=== PATIENT | female | born 2000 | race Caucasian/White ===

== ENCOUNTER 2019-06-01 07:12 | Emergency (ER) | payer OTHER, SELFPAY ==
--- NOTE | 2019-06-01 07:28 | ED.GENADULT ---
HPI - General Adult General Chief complaint: Unspecified Stated complaint: Sore Throat, Rash Time Seen by Provider: 06/01/19 07:14 Source: patient Mode of arrival: ambulatory Limitations: no limitations History of Present Illness HPI narrative: 18 years old white female presents with sore throat for the last 3 days. Denies sick contacts. No headache, no fever. Related Data Allergies Allergy/AdvReac Type Severity Reaction Status Date / Time No Known Allergies Allergy Verified 06/01/19 07:43 Review of Systems Review of Systems: Narrative: CONSTITUTIONAL: Denies fever, chills, or sweats. EYES: Denies visual changes, redness, or discharge. ENT: Denies rhinorrhea, congestion, complaining of sore throat, or otalgia. CARDIOVASCULAR: Denies chest pain, palpitations, or edema. RESPIRATORY: Denies cough or dyspnea. GASTROINTESTINAL: Denies abdominal pain, nausea, vomiting, or diarrhea. GENITOURINARY: Denies dysuria or hematuria. SKIN: Denies rash or itching. MUSCULOSKELETAL: Denies back pain, joint pain, or myalgia. NEUROLOGIC: Denies headache, numbness, or weakness. PSYCHIATRIC: Denies anxiety or depression. PMFSH Social History Social History Gender identity (if verbalized by the patient): Female Exam Narrative: Exam Narrative: General appearance: Well-developed, well-nourished Skin: Normal color Head: Normocephalic, nontraumatic Eyes: Clear conjunctiva ENT: Large erythematous tonsils, white patches, Neck: Supple, nontender Chest and respiratory: Airway patent, no respiratory distress, no accessory muscle use Heart: Regular rate/rhythm Abdomen: Soft, nontender, no organomegaly, quiet bowel sounds Vascular: Normal peripheral pulses, normal capillary refill. Musculoskeletal: Normal range of motion, nontender back Neurologic: Alert and oriented ?3, STOCK WORKER AND DELIVERER is normal as tested, no gross motor deficit Course Course Emergency Course: Unchanged Medical Decision Making MDM Narrative Medical decision making narrative: Strep throat is my concern. Critical Care Time Critical Care Time Critical Care Time: No Discharge Plan Discharge Clinical Impression: Strep throat Patient Disposition: Home, Self-Care Condition: Stable Instructions: Antibiotic Form Additional Instructions: Return if symptoms are worsening , call your family physician for appointment, take Tylenol as as needed for aches and pain, continue home medications. Prescriptions: New azithromycin [Zithromax] 250 mg tablet See Rx Instructions .ROUTE .COMPLEX Qty: 6 RF: 0 Follow-up/Referrals: Carson Geller MD [Physician] - 06/05/19 UNKNOWN,DOCTOR [Primary Care Provider] -
[2019-06-01 07:30] VITALS: BP 118/79; PULSE 110; RESP 14; TEMP 36.9; O2SAT 100
--- NOTE | 2019-06-01 07:58 | ED.GENADULT ---
HPI - General Adult General Chief complaint: Unspecified Stated complaint: Sore Throat, Rash Time Seen by Provider: 06/01/19 07:14 Source: patient Mode of arrival: ambulatory Limitations: no limitations History of Present Illness HPI narrative: Sore throat for the last few days Related Data Home Medications Medication Instructions Recorded Confirmed loratadine 10 mg PO DAILY 06/01/19 Allergies Allergy/AdvReac Type Severity Reaction Status Date / Time No Known Allergies Allergy Verified 06/01/19 07:43 Review of Systems Review of Systems: Narrative: CONSTITUTIONAL: Denies fever, chills, or sweats. EYES: Denies visual changes, redness, or discharge. ENT: Denies rhinorrhea, congestion, sore throat CARDIOVASCULAR: Denies chest pain, palpitations, or edema. RESPIRATORY: Denies cough or dyspnea. GASTROINTESTINAL: Denies abdominal pain, nausea, vomiting, or diarrhea. GENITOURINARY: Denies dysuria or hematuria. SKIN: Denies rash or itching. MUSCULOSKELETAL: Denies back pain, joint pain, or myalgia. NEUROLOGIC: Denies headache, numbness, or weakness. PSYCHIATRIC: Denies anxiety or depression. PMFSH Social History Social History Gender identity (if verbalized by the patient): Female Exam Narrative: Exam Narrative: General appearance: Well-developed, well-nourished Skin: Normal color Head: Normocephalic, nontraumatic Eyes: Clear conjunctiva ENT: Large swollen tonsils bilaterally with yellow patches, ears normal, nose normal Neck: Supple, nontender Chest and respiratory: Airway patent, no respiratory distress, no accessory muscle use Heart: Regular rate/rhythm Abdomen: Soft, nontender, no organomegaly, quiet bowel sounds Vascular: Normal peripheral pulses, normal capillary refill. 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 Labs ordered. Further plan to follow Vital Signs Vital Signs: Vital Signs Temperature 36.9 C 06/01/19 07:30 Pulse Rate 110 H 06/01/19 07:30 Respiratory Rate 14 06/01/19 07:30 Blood Pressure 118/79 06/01/19 07:30 Pulse Oximetry 100 06/01/19 07:30 Temperature 36.9 C 06/01/19 07:30 Pulse Rate 110 H 06/01/19 07:30 Respiratory Rate 14 06/01/19 07:30 Blood Pressure 118/79 06/01/19 07:30 Pulse Oximetry 100 06/01/19 07:30 Lab Data Labs: Strep Screen Positive Group A Strep *(Reference Range: Negative)* Critical Care Time Critical Care Time Critical Care Time: No Discharge Plan Discharge Clinical Impression: Strep throat Patient Disposition: Home, Self-Care Condition: Stable Instructions: Antibiotic Form Additional Instructions: Return if symptoms are worsening , call your family physician for appointment, take Tylenol as as needed for aches and pain, continue home medications. Prescriptions: New azithromycin [Zithromax] 250 mg tablet See Rx Instructions .ROUTE .COMPLEX Qty: 6 RF: 0 No Action loratadine 10 mg Capsul
== END 2019-06-01 07:54 | disposition home or self-care (01) ==
PROVIDERS: Emergency Provider Emergency Medicine
DX: J02.0 Streptococcal pharyngitis (principal)
CPT/HCPCS: 87880; 99283

== ENCOUNTER 2024-11-09 20:47 | Emergency (ER) | payer SELFPAY ==
--- OUTSIDE RECORDS SUMMARY | 2024-11-09 20:49 | XMS_ITS | Encounter Summary ---
Author Organization [facility] Address [address] [place] [address] Phone Care Team Providers Care Abrasive Wheel Molder Name Role Phone Christina Stapleton APRN, SENIOR CHEMICAL ENGINEER Primary Care Provider [phone]- [phone] Reason for Visit * Reason Comments Medication Refill Encounter Details Date Type Department Care Team (Late st Contact Info) Description 12/03/2023 Refill [facility] - Primary Care - [place] [address] [place] [address] Christina Stapleton APRN, SENIOR CHEMICAL ENGINEER [address] [place] [address] Medication Refill Social History Tobacco Use Types Packs/Day Years Used Date Smoking Tobacco: Never Smokeless Tobacco: Never Alcohol Use Standard Drinks/Week Comments Not Currently 0 (1 standard drink = 0.6 oz pur e alcohol) [facility] Utilities Answer Date Recorded In the past 12 months has [employer], [employer], [employer], or water [employer] threatened to shut off services in your home? No 09/09/2023 Social Connection and Isolat ion Panel [NHANES] Answer Date Recorded In a typical week, how many times do you talk on the phone with family, friends, or neighbors? More than three times a week 09/09/2023 How often do you get togethe r with friends or relatives? Once a week 09/09/2023 How often do you attend chur or caodaism services? Never 09/09/2023 Do you belong to any clubs o r organizations such as congregational groups, unions, fraternal or athletic groups, or school groups? No 09/09/2023 How often do you attend meet ings of the clubs or organizations you belong to? Never 09/09/2023 Are you , , di vorced, , never , or living with a partner? Never 09/09/2023 AUDIT-C Answer Date Recorded Q1: How often do you have a drink containing alcohol? Never 09/09/2023 Q2: How many drinks containi ng alcohol do you have on a typical day when you are drinking? Patient does not drink Q3: How often do you have si x or more drinks on one occasion? Never 09/09/2023 Overall Financial Resource Strain (CARDIA) Answe r Date Recorded How hard is it for you to pa y for the very basics like food, housing, medical care, and heating? Not hard at all 09/09/2023 PHQ-2 Answer Date Recorded Total Score - Questions 1-9 10 08/26 [facility] - Occupational Stress Questionnaire Answer Date Recorded Do you feel stress - tense, restless, nervous, or anxious, or unable to sleep at night because your mind is troubled all the time - these days? Patient declined 09/09/2023 Exercise Vital Sign Answer Date Recorde d On average, how many days pe r week do you engage in moderate to strenuous exercise (like a brisk walk)? 2 days 09/09/2023 On average, how many minutes do you engage in exercise at this level? 20 min 09/09/2023 Hunger Vital Sign Answer Date Recorded Within the past 12 months, y ou worried that your food would run out before you got the money to buy more. Never true 09/09/19 24 Within the past 12 months, t he food you bought just didn't last and you didn't have money to get more. Never true 09/09/2023 PRAPARE - Transportation Answer Date Re corded In the past 12 months, has l ack of transportation kept you from medical appointments or from getting medications? No 08/26 In the past 12 months, has l ack of transportation kept you from meetings, work, or from getting things needed for daily living? No 09/09/2023 Housing Stability Vital Sign Answer Clyde e Recorded In the last 12 months, was t here a time when you were not able to pay the mortgage or rent on time? No 09/09/2023 In the last 12 months, how many places have you lived? 1 09/09/2023 In the last 12 months, was t here a time when you did not have a steady place to sleep or slept in a usp (including now)? No 09/09/2023 Education Answer Date Recorded What is the highest level of school you have completed or the highest degree you have received? 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 Requested Prescriptions Pending Prescriptions Disp Refills sertraline (ZOLOFT) 25 MG Tablet [Pharmacy Med Name: SERTRALINE HCL 25 MG TABLET] 90 Tablet 0 Sig: TAKE 1 TABLET BY MOUTH EVERY DAY SSRI (6 Month Refill Only) Protocol Failed - 12/03/2023 1:31 PM Failed - Patient has established therapy with SSRI for at least 6 months Passed - No test in the past 12 months or most recent test was negative Passed - No active on record Passed - Visit with relevant provider in past 6 months or upcoming 90 days Recent Visits Date Type Provider Dept 09/10/23 Office Visit Christina Stapleton, PRESS OPERATOR INSTANT PRINT SHOP, SENIOR CHEMICAL ENGINEER [facility] Showing recent visits within past 182 days and meeting all other requirements Future Appointments No visits were found meeting these conditions. Showing future appointments within next 90 days and meeting all other requirements Passed - Has an encounter in the past 6 months with a depression, anxiety, adjustment disorder, OCD, or PTSD visit diagnosis documented in this encounter Plan of Treatment Not on file documented as of this encounter Visit Diagnoses Diagnosis Anxiety Anxiety state, unspecified Depression, unspecified depression type documented in this encounter Additional Health Concerns Assessment Noted Time PHQ-9 Depression Total Score: 10 024 8:56 AM CDT documented as of this encounter Care Teams Abrasive Wheel Molder Relationship Specialty Start Date End Date Christina Stapleton, PRESS OPERATOR INSTANT PRINT SHOP, SENIOR CHEMICAL ENGINEER [address] [place] [address] PCP - General Certified Nurse Practitioner 09/10/23 documented as of this encounter
--- OUTSIDE RECORDS SUMMARY | 2024-11-09 20:49 | XMS_ITS | Encounter Summary ---
Author Organization [facility] Address [address] [place] [address] Phone Care Team Providers Care Panel Builder Name Role Phone Nunu Pritchard APRN, JULIÁN Primary Care Provider Christina Stapleton APRN, CNP Primary Care Provider [phone]- [phone] Reason for Visit * Reason Comments Medication Refill Encounter Details Date Type Department Care Team (Late st Contact Info) Description 02/27/2021 Refill [facility] - Primary Care - [place] [address] [place] [id number] Nunu Pritchard APRN, JULIÁN [address] [place] [address] Medication Refill Social History Tobacco Use Types Packs/Day Years Used Date Smoking Tobacco: Never Smokeless Tobacco: Never PHQ-2 Answer Date Recorded Total Score - Questions 1-9 0 05/28 Education Answer Date Recorded What is the highest level of school you have completed or the highest degree you have received? 12th grade 06/09/2020 Comments Unknown Sex and Gender Information Value Date Recorded Sex Assigned at Not on file Legal Sex Female 3:28 PM TIPPLE TENDER Gender Identity Not on file Sexual Orientation Not on file documented as of this encounter Miscellaneous Notes * Telephone Encounter - Fabio Seo PAC - 02/27/2021 3:03 PM CDT Rx refill approved. * Telephone Encounter - Mariana Rooney RN - 02/27/2021 2:15 PM CDT Medication failed the protocol, provider to review and approve the medication order if appropriate. Requested Prescriptions Pending Prescriptions Disp Refills citalopram (CeleXA) 20 MG Tablet [Pharmacy Med Name: CITALOPRAM 20MG TABLETS] 90 Tablet 0 Sig: TAKE 1 TABLET BY MOUTH DAILY Citalopram (Celexa) (6 Month Refill Only) Protocol Failed - 02/27/2021 2:15 PM Failed - Has an encounter in the past 6 months with a depression, anxiety, adjustment disorder, OCD, or PTSD visit diagnosis Passed - No test in the past 12 months or most recent test was negative Passed - No active on record Passed - Citalopram dose is less than or equal to 40mg / day Passed - Visit with relevant provider in past 6 months or upcoming 90 days Recent Visits Date Type Provider Dept 11/18/20 Office Visit Nunu Pritchard, LATANYA, CARDIAC REHAB NURSE [facility] Showing recent visits within past 182 days and meeting all other requirements Future Appointments No visits were found meeting these conditions. Showing future appointments within next 90 days and meeting all other requirements Passed - Patient has established therapy with Citalopram for at least 6 months documented in this encounter Plan of Treatment Not on file documented as of this encounter Visit Diagnoses Not on filedocumented in this encounter Additional Health Concerns Assessment Noted Time PHQ-9 Depression Total Score: 0 06/10/20 9:07 AM TIPPLE TENDER documented as of this encounter Care Teams Panel Builder Relationship Specialty Start Date End Date Nunu Pritchard, RAIL TRANSPORTATION TABELER, CARDIAC REHAB NURSE [address] [place] [address] PCP - General Advanced Practice Nurse 06/10/20 Christina Stapleton APRN, CARDIAC REHAB NURSE [address] [place] [address] PCP - General Certified Nurse Practitioner 09/10/23 documented as of this encounter
--- OUTSIDE RECORDS SUMMARY | 2024-11-09 20:49 | XMS_ITS | Clinical Summary ---
Author Organization [facility] Address [address] [place] [address] Phone Care Team Providers Care Lead Refiner Name Role Phone Christina Stapleton APRN, ICT EDUCATOR Primary Care Provider [phone]- [phone] Allergies No known active allergies Medications clindamycin (CLINDAGEL) 1 % Gel BEA TO TOPICALLY HS 0 Active ADAIR 3-0.02 MG Tablet TK 1 T PO D 0 Active sertraline (ZOLOFT) 25 MG TabletIndication s:Anxiety,Depres merary, unspecified depression type TAKE 1 TABLET BY MOUTH EVERY DAY 90 Tablet 4 Active Omeprazole Magnesium (PRILOSEC PO) Take by mouth. A ctive Active Problems No known active problems Family History Medical History Relation Name Comments No Known Problems Mother Relation Name Status Comments Father Alive Mother Alive Social History Tobacco Use Types Packs/Day Years Used Date Smoking Tobacco: Never Smokeless Tobacco: Never Alcohol Use Standard Drinks/Week Comments Not Currently 0 (1 standard drink = 0.6 oz pur e alcohol) [facility] Utilities Answer Date Recorded In the past 12 months has [employer], gas, oil, or water [employer] threatened to shut off services in your [...] week 09/09/2023 How often do you attend [facility] or synagogue services? Never 09/09/2023 Do you belong to any clubs o r organizations such as faith groups, unions, fraternal or athletic groups, or [...] Recorded Total Score - Questions 1-9 0 02/28 [facility] - Occupational Stress Questionnaire Answer Date Recorded [...] place to sleep or slept in a nursing home (including now)? No 09/09/2023 Education Answer Date Recorded What is the highest level of school you have completed or the highest degree you have received? 12th grade 06/09/2020 Sexually Active Control Partners Comments Yes Oral Contraceptive Comments Unknown Sex and Gender Information Value Date Recorded Sex Assigned at Not on file Legal Sex Female 3:28 PM CLINICAL ASSOC Gender Identity Not on file Sexual Orientation Not on file Last Filed Vital Signs Vital Sign Reading Time Taken Comments Blood Pressure 110/72 09/10/2023 8:55 AM CDT Pulse 97 09/10/2023 8:55 AM CDT Temperature 37 C (98.6 F) 09/10/2023 8:55 AM CDT Respiratory Rate 20 09/10/2023 8:55 AM CDT Oxygen Saturation 98% 09/10/2023 8:55 AM CDT Inhaled Oxygen Concentration - - Weight 56.2 kg (124 lb) 09/10/2023 8:55 AM CDT Height 170.2 cm (5' 7 ) 09/10/2023 8:55 AM CDT Body Mass Index 19.42 09/10/2023 8:55 AM CDT Plan of Treatment Health Maintenance Due Date Last Done Comments TdaP Immunization 1999 Human Papillomavirus (HPV) Immunization (1 - 3-dose series) 10/05/2014 Hepatitis B Immunization (1 of 3 - 19+ 3-dose series) 10/05/2018 Respiratory Syncytial Virus (RSV) Immunization (Adult) (1 - 1-dose 75+ series) 10/05/2074 SARS-COV-2 Immunization Discontinued 03/20/20 21, 02/27/2021 Hepatitis C Virus (HCV) Screening Completed 09/28/2023 Influenza Immunization Discontinued Meningococcal Immunization (ACWY) Aged Out No longer eligible based on patient's age to complete this topic Pneumococcal Immunization Combined Aged Out No longer eligible based on patient's age to complete this topic Rotavirus Immunization Aged Out No lo nger eligible based on patient's age to complete this topic Procedures Procedure Name Priority Date/Time Associated Diagnosis Comments HEPATITIS C ANTIBODY Routine 09/28/2023 Pain in both lower extremities Anxiety Depression, unspecified depression type Encounter for hepatitis C screening test for low risk patient from Last 3 Months or Most Recently Relevant to Health Maintenance Results * HEPATITIS C ANTIBODY (09/28/2023) Blood 09/28/2023 Christina Stapleton APRN, JULIÁN CHEMISTRY ORDERABLES Final Result from Last 3 Months or Most Recently Relevant to Health Maintenance Insurance [employer] Care Teams Lead Refiner Relationship Specialty Start Date End Date Christina Stapleton APRN, ICT EDUCATOR [address] [place] [address] PCP - General Certified Nurse Practitioner 09/10/23
[2024-11-09 21:13] VITALS: BP 158/82; PULSE 108; RESP 18; TEMP 36.4; O2SAT 99
--- NOTE | 2024-11-09 22:14 | PC.NURSE ---
Patient leaving with mother-will return if needed
--- OUTSIDE RECORDS SUMMARY | 2024-11-09 22:50 | XMS_ITS | Clinical Summary ---
Author Organization [facility] Address [address] [place] [address] Phone Care Team Providers Care General Ledger Bookkeeper Name Role Phone Christina Stapleton APRN, SALES AND MARKETING VICE PRESIDENT Primary Care Provider [phone]- [phone] Allergies No known active allergies Medications clindamycin [...] drink = 0.6 oz pur e alcohol) [facility] Utilities Answer Date Recorded In the past 12 months has [employer], gas, oil, or water [employer] threatened to shut off services in your [...] week 09/09/2023 How often do you attend [facility] or advent services? Never 09/09/2023 Do you belong to any clubs o r organizations such as episcopal groups, unions, fraternal or athletic groups, or [...] Total Score - Questions 1-9 0 02/28 [facility] Occupat ional Health - Occupational Stress [...] place to sleep or slept in a mcc (including now)? No 09/09/2023 Education Answer Date Recorded What is the highest level of school you have completed or the highest degree you have received? 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 [place] [address] Health Maintenance Due Date Last Done Comments TdaP Immunization 1999 Human Papillomavirus (HPV) Immunization (1 - 3-dose series) 10/05/2014 Hepatitis B Immunization (1 of 3 - 19+ 3-dose series) 10/05/2018 Pap Smear 10/05/2020 Respiratory Syncytial Virus (RSV) Immunization (Adult) (1 [...] * HEPATITIS C ANTIBODY (09/28/2023) Blood 09/28/2023 us Christina Stapleton SWIMMING POOL PLASTERER HELPER, SALES AND MARKETING VICE PRESIDENT CHEMISTRY ORDERABLES Final Result from Last 3 Months or Most Recently Relevant to Health Maintenance Insurance [employer] Care Teams General Ledger Bookkeeper Relationship Specialty Start Date End Date Pieter, Christina M, SWIMMING POOL PLASTERER HELPER, SALES AND MARKETING VICE PRESIDENT [address] [place] [address] PCP - General Certified Nurse Practitioner 09/10/23
--- OUTSIDE RECORDS SUMMARY | 2024-11-09 22:50 | XMS_ITS | Encounter Summary ---
Author Organization [facility] Address [address] [place] [address] Phone Care Team Providers Care Service Dispatcher Name Role Phone Christina Stapleton APRN, GL ACCOUNTANT Primary Care Provider [phone] Reason for Visit * Reason Comments Medication Refill Encounter Details Date Type Department Care Team (Late st Contact Info) Description 12/03/2023 Refill [facility] - Primary Care - [place] [address] [place] [address] Christina Stapleton APRN, GL ACCOUNTANT [address] [place] [address] Medication Refill Social History Tobacco Use Types Packs/Day Years Used Date Smoking Tobacco: Never Smokeless Tobacco: Never Alcohol Use Standard Drinks/Week Comments Not Currently 0 (1 standard drink = 0.6 oz pur e alcohol) [facility] Utilities Answer Date Recorded In the past 12 months has [employer], [employer], [employer], or water [employer] threatened to shut off services in your [...] How often do you attend chur or gnosticism services? Never 09/09/2023 Do you belong to any clubs o r organizations such as presybeterian groups, unions, fraternal or athletic groups, or [...] Total Score - Questions 1-9 10 08/26 [facility] - Occupational Stress Questionnaire Answer Date [...] place to sleep or slept in a senior living (including now)? No 09/09/2023 Education Answer Date Recorded What is the highest level of school you have completed or the highest degree you have received? 12th grade 06/09/2020 Sexually Active Control Partners Comments Yes Oral Contraceptive Comments Unknown Sex and Gender Information Value Date Recorded Sex Assigned at Not on file Legal Sex Female 3:28 PM CUT OFF [employer] LOG Gender Identity Not on file Sexual Orientation [...] Provider Dept 09/10/23 Office Visit Christina Stapleton, PRESCHOOL AIDE, GL ACCOUNTANT [facility] Showing recent visits within past 182 days and meeting all other requirements Future Appointments No visits were found meeting these conditions. Showing future appointments within next 90 days and meeting all other requirements Passed - Has an encounter in the past 6 months with a depression, anxiety, adjustment disorder, OCD, or PTSD visit diagnosis documented in this encounter Plan of Treatment Upcoming Encounters Date Type Department Care Team (Late st Contact Info) Description 11/10/2024 4:15 PM CDT Office Visit [facility] - Primary Care - [place] [address] [place] [address] Christina Stapleton APRN, GL ACCOUNTANT [address] [place] [address] documented as of this encounter Visit Diagnoses Diagnosis Anxiety Anxiety state, unspecified Depression, unspecified depression type documented in this encounter Additional Health Concerns Assessment Noted Time PHQ-9 Depression Total Score: 10 024 8:56 AM CDT documented as of this encounter Care Teams Service Dispatcher Relationship Specialty Start Date End Date Christina Stapleton, OLE, GL ACCOUNTANT [address] [place] [address] PCP - General Certified Nurse Practitioner 09/10/23 documented as of this encounter
--- OUTSIDE RECORDS SUMMARY | 2024-11-09 22:50 | XMS_ITS | Encounter Summary ---
Author Organization [facility] Address [address] [place] [address] Phone Care Team Providers Care Carton Packaging Machine Operator Name Role Phone Nunu Pritchard APRN, JULIÁN Primary Care Provider Christina Stapleton APRN, CNP Primary Care Provider [phone]- [phone] Reason for Visit * Reason Comments Medication Refill Encounter Details Date Type Department Care Team (Late st Contact Info) Description 02/27/2021 Refill [facility] - Primary Care - [place] [address] [place] [id number] Nunu Pritchard APRN, JULIÁN [address] [place] [address] Medication Refill Social History Tobacco [...] on file Legal Sex Female 3:28 PM TELEPHONE SALES REPRESENTATIVE Gender Identity Not on file Sexual Orientation [...] Provider Dept 11/18/20 Office Visit Nunu Pritchard, EMPLOYMENT MANAGER, LICENSED MASTER SOCIAL WORKER [facility] Showing recent visits within past 182 days [...] Description 11/10/2024 4:15 PM CDT Office Visit [facility] - Primary Care - [place] [address] [place] [id number] Christina Stapleton APRN, LICENSED MASTER SOCIAL WORKER [address] [place] [address] documented as of this encounter Visit Diagnoses Not on filedocumented in this encounter Additional Health Concerns Assessment Noted Time PHQ-9 Depression Total Score: 0 06/10/20 20 9:07 AM TELEPHONE SALES REPRESENTATIVE documented as of this encounter Care Teams Carton Packaging Machine Operator Relationship Specialty Start Date End Date Nunu Pritchard, CHEMIST WATER PURIFICATION, LICENSED MASTER SOCIAL WORKER [address] [place] [address] PCP - General Advanced Practice Nurse 06/10/20 Christina Stapleton APRN, LICENSED MASTER SOCIAL WORKER [address] [place] [address] PCP - General Certified Nurse Practitioner 09/10/23 documented as of this encounter
== END 2024-11-09 22:14 | disposition left against medical advice (07) ==
LOC: ANHED 22:49
DX: R10.33 Periumbilical pain (principal)
CPT/HCPCS: 99199